=== PATIENT | female | born 1985 | race Caucasian/White ===

== ENCOUNTER 2018-02-22 12:51 | Outpatient (REF) | payer BC, SELFPAY | END 2018-02-22 13:11 | LOC: LBN 12:51 | PROVIDERS: PCP Nurse Practitioner Adult Health; Visit Provider Advanced Practice Midwife | DX: Z34.93 Encounter for supervision of normal pregnancy, unspecified, third trimester (principal); Z36.85 Encounter for antenatal screening for Streptococcus B | CPT/HCPCS: 87081 ==

== ENCOUNTER 2018-03-27 18:01 | Inpatient (IN) | payer BC, SELFPAY ==
[2018-03-27 19:45] LABS: HCT 38.8 % (36.0-46.0); HGB 13.1 g/dL (12.0-15.5); Mean Corp. HGB Concentration 33.8 g/dL (32.0-36.0); Mean Corpuscular Hemoglobin 32.2 pg (27.0-33.0); Mean Corpuscular Volume 95.3 fL (80-95); Mean Platelet Volume 12.7 fL (8.0-11.0); Platelet Count 122 x1000/uL (130-400); RBC 4.07 m/cumm (4.00-5.20); RBC Distribution Width 14.2 % (11.7-14.6); White Blood Cell Count 10.59 k/cumm (4.4-10.8)
[2018-03-27] MEDS: Oxytocin 10 UNITS/ML VIAL 20 UNITS (21:15)
[2018-03-28] MEDS: Ibuprofen 600 MG TAB PO ×4 (00:15→20:02)
[2018-03-28] MEDS: Acetaminophen 325 MG TAB 650 MG PO ×3 (05:04→20:01)
[2018-03-28 07:36] LABS: HCT 35.3 % (36.0-46.0); HGB 11.8 g/dL (12.0-15.5); Mean Corp. HGB Concentration 33.4 g/dL (32.0-36.0); Mean Corpuscular Hemoglobin 32.2 pg (27.0-33.0); Mean Corpuscular Volume 96.2 fL (80-95); Mean Platelet Volume 12.4 fL (8.0-11.0); Platelet Count 115 x1000/uL (130-400); RBC 3.67 m/cumm (4.00-5.20); RBC Distribution Width 14.3 % (11.7-14.6); White Blood Cell Count 13.86 k/cumm (4.4-10.8)
[2018-03-29] MEDS: Ibuprofen 600 MG TAB PO ×2 (04:16→13:25)
[2018-03-29] MEDS: Acetaminophen 325 MG TAB 650 MG PO (04:16)
[2018-03-29] MEDS: Acetaminophen 325 MG TAB 650 MG (13:24)
--- NOTE | 2018-05-06 09:39 | ROE_ITS ---
PROCEDURE NOTE DATE OF PROCEDURE March 27, 2018 INDICATIONS FOR PROCEDURE The patient is a 32-year-old G3, now P2 female status post who underwent a spontaneous vaginal delivery of a viable female infant weighing 9 pounds, 0 ounces on 03/27/2018. Renan Amador CNM was the delivering provider. After the placenta was delivered without complications, Ms. Amador noted a brisk amount of bleeding coming from the 12 o'clock position on the anterior lip of the cervix. I was requested to present to the Center and perform the repair. DESCRIPTION OF PROCEDURE After verbal consent was obtained from the patient, she already was in the dorsal lithotomy position, a bivalved speculum was placed into the vagina. Without good visualization, I was able to see what appeared to be a 1.5-cm separation of the anterior lip of the cervix at approximately 12 o'clock position. Using a forceps to grasp the tissue and reapproximate the edges, I placed a #3-0 Vicryl suture at the base of the separation and performed a running suture of #3-0 Vicryl to reapproximate the edges of the cervix. The site was hemostatic at completion of the procedure. The site was observed for several minutes and was felt to be satisfactorily repaired. The speculum was removed from the patient's vagina, and I used massage without any further clots and debris, and her vaginal bleeding had subsided.
== END 2018-03-29 12:45 | disposition home or self-care (01) | DRG 768 ==
PROVIDERS: Admitting Provider Advanced Practice Midwife; PCP Nurse Practitioner Adult Health; Visit Provider Advanced Practice Midwife
DX: O48.0 Post-term pregnancy (principal); Z37.0 Single live birth; O71.3 Obstetric laceration of cervix; Z3A.40 40 weeks gestation of pregnancy; O70.0 First degree perineal laceration during delivery; O77.0 Labor and delivery complicated by meconium in amniotic fluid; O62.1 Secondary uterine inertia; O75.89 Other specified complications of labor and delivery; R94.6 Abnormal results of thyroid function studies
CPT/HCPCS: 36415; 85027; 86850; 86900; 86901; J2590

== ENCOUNTER 2021-04-18 03:41 | Outpatient (CLI) | payer BC, SELFPAY ==
[2021-04-18 09:45] LABS: Abs Immature Grans 0.01 10^3/uL (0.0-0.06); Absolute Basophil Count 0.02 10^3/uL (0.0-0.2); Absolute Eosinophil Count 0.11 10^3/uL (0.0-0.7); Absolute Monocyte Count 0.46 10^3/uL (0.1-0.8); Absolute Neutrophil Count 4.15 10^3/uL (1.2-6.7); Basophils % 0.3; Eosinophils % 1.8; HCT 42.2 % (36.0-46.0); HGB 14.1 g/dL (11.2-15.7); Immature Grans % 0.2; Lymphocytes % 21.5; MCH 30.9 pg (27.0-33.0); MCHC 33.4 % (32.0-36.0); MCV 92.3 fL (80-95); MPV 11.2 fL (8.0-11.0); Monocytes % 7.6; Neutrophils % 68.6; Nucleated RBC 0 %; Platelet Count 218 10^3/uL (130-400); RBC 4.57 10^6/uL (3.93-5.22); RDW 11.6 % (11.7-14.6); RDW-SD 39.3 fL; WBC 6.05 10^3/uL (4.4-10.8)
[2021-04-18 12:44] LABS: BUN 10 mg/dL (7-18); CREATININE 0.7 mg/dL (0.55-1.02); Calcium 9.1 mg/dL (8.5-10.1); Calculated LDL 133 mg/dL (<100); Cholesterol 203 mg/dL (<200); Glucose 86 mg/dL (74-106); HDL Cholesterol 63 mg/dL (40-60); Total Protein 7.8 g/dL (6.4-8.2); Triglyceride 38 mg/dL (<150)
[2021-04-18 12:45] LABS: ALT 23 U/L (14-59); AST 14 U/L (15-37); Albumin 4.1 g/dL (3.4-5.0); Alkaline Phosphatase 50 U/L (46-116); Anion Gap 8.9 mmol/L (3-11); Bilirubin, Total 0.3 mg/dL (0.2-1.0); CO2 29.1 mmol/L (21.0-32.0); Chloride 103 mmol/L (98-107); Ferritin 22 ng/mL (8-252); Potassium 4.4 mmol/L (3.5-5.1); Sodium 141 mmol/L (136-145); TSH 3.17 uIU/mL (0.36-3.74)
[2021-04-18 12:46] LABS: Folate > 20.0 ng/mL (8.6-20.0); Vitamin B12 892 pg/mL (193-986)
[2021-04-18 12:52] LABS: Iron 82 ug/dL (50-170); Total Iron Binding Capacity 321 ug/dL (250-450); Transferrin Sat 26 % (15-50)
[2021-04-18 15:34] LABS: FREE T4 0.86 ng/dL (0.76-1.46); Hemoglobin A1C 5.3 % (<5.7)
[2021-04-18 16:56] LABS: T3,Free 3.2 pg/mL (2.8-5.3)
[2021-04-18 17:13] LABS: T3, Total 138 ng/dL (97-169)
[2021-04-18 18:22] LABS: Thyroglobulin Antibody 18 U/mL (<=60); Thyroperoxidase Antibody 584 U/mL (<=60)
[2021-04-19 12:45] LABS: Lipoprotein (a) 170 nmol/L (<75)
== END 2021-04-18 03:42 | disposition home or self-care (01) ==
PROVIDERS: PCP Nurse Practitioner Adult Health; Visit Provider Naturopath
DX: R53.83 Other fatigue (principal); Z13.220 Encounter for screening for lipoid disorders
CPT/HCPCS: 36415; 80053; 80061; 83695; 82607; 82728; 82746; 83036; 83540; 83550; 84439; 84443; 84480; 84481; 85025; 86376; 86800